=== PATIENT | male | born 1975 | race Caucasian/White ===

== ENCOUNTER 2017-07-24 20:17 | Emergency (ER) | payer OTHER ==
[~2017-07-24] VITALS: Ht 172.7 cm; Wt 73.0 kg
[2017-07-24 20:52] VITALS: Ht 172.7 cm; Wt 73.0 kg
[2017-07-25 01:15] VITALS: BP 154/81
== END 2017-07-25 01:16 | disposition left against medical advice (07) ==
LOC: ED 20:17
DX: Z53.21 Procedure and treatment not carried out due to patient leaving prior to being seen by health care provider (principal)

== ENCOUNTER 2017-11-10 06:17 | Emergency (ER) | payer OTHER ==
[~2017-11-10] VITALS: Ht 172.7 cm; Wt 70.0 kg
[2017-11-10 06:23] VITALS: Ht 172.7 cm; Wt 70.0 kg
[2017-11-10 07:07] VITALS: BP 123/74
== END 2017-11-10 07:07 | disposition home or self-care (01) ==
LOC: ED 06:17
DX: H72.91 Unspecified perforation of tympanic membrane, right ear (principal); Z90.49 Acquired absence of other specified parts of digestive tract